=== PATIENT | female | born 1945 | race Two or more races ===

== ENCOUNTER → 2024-06-25 | Day surgery (SDC) | payer MEDICARE, MEDICAID ==
[2024-06-22 15:34] LABS: Urine Bacteria FEW /hpf (None Seen); Urine Blood Negative /uL (Negative); Urine Clarity Turbid (Clear); Urine Color Light-Yellow (Yellow); Urine Protein, UAD Negative (Negative); Urine Specific Gravity 1.018 (1.001-1.035); Urine Squamous Epithelial Cell FEW /hpf (<5); Urine Urobilinogen Normal (Negative); Urine WBC 85 /HPF (0-5); Urine pH 6.5 (5.0-9.0)
[2024-06-22 15:43] LABS: Basophils # (auto) 0.1 10 ^3/uL (0-0.2); Basophils % (auto) 0.7 % (0.0-2.0); Eosinophils # (auto) 0.2 10 ^3/uL (0-0.8); Eosinophils % (auto) 2.4 % (0.0-7.0); Hematocrit 39.7 % (36.0-46.0); Hemoglobin 13.6 g/dL (12.2-16.2); Lymphocytes # (auto) 1.6 10 ^3/uL (0.4-5.4); Lymphocytes % (auto) 20.9 % (10.0-50.0); Mean Corpuscular Hemoglobin 31.5 pg (28.0-32.0); Mean Corpuscular Hgb Conc. 34.2 g/dL (32.0-36.0); Monocytes # (auto) 0.7 10 ^3/uL (0-1.3); Monocytes % (auto) 9.2 % (0.0-12.0); Neutrophils # (auto) 5.1 10 ^3/uL (1.6-8.6); Neutrophils % (auto) 66.8 % (37.0-80.0); Nucleated Red Blood Cells % 0.1 %; Platelet Count (auto) 153 10^3/uL (140-450); Red Blood Cells 4.31 10^6/uL (4.0-5.20); Red Cell Distribution Width 13.5 % (11.8-14.3); White Blood Cell 7.7 10^3/uL (4.4-10.8)
[2024-06-22 16:04] LABS: INR 1.08 (0.9-1.15); Partial Thromboplastin Time 26.6 SEC (24.5-34.5); Prothrombin Time 11.4 sec (9.3-11.8)
[2024-06-22 16:11] LABS: Alanine Aminotransferase 16 U/L (7-40); Albumin 4.2 g/dL (3.2-4.8); Alkaline Phosphatase 118 U/L (46-116); Anion Gap 8 (5-15); Aspartate Aminotransferase 16 U/L (13-40); BUN/Creatinine Ratio 12.8 (10.0-20.0); Bilirubin, Total 0.5 mg/dL (0.2-1.0); Blood Urea Nitrogen 18 mg/dL (9-23); Calcium 9.5 mg/dL (8.7-10.4); Carbon Dioxide 28 mmol/L (20-31); Chloride 104 mmol/L (98-107); Glucose 157 mg/dL (74-106); Potassium 4.6 mmol/L (3.5-5.1); Sodium 140 mmol/L (136-145); Total Protein 7.3 g/dL (5.7-8.2)
[~2024-06-25] VITALS: Ht 162.6 cm; Wt 208.0 kg
[~2024-06-25] MED LIST: APIX5TAB PO; ATOR-507 PO; CARV25TA55 PO; CETI10TA2 PO; CHOL20007 OR; DIGO0.12 PO; DIP005TP TOP; EMPA1TAB PO; HYDR-4491 OR; INSU100I33 SC; INSU100I49 SC; ISOS1TAB29 PO; LEVO25TA6 PO; LISI2.5T47 PO; PROPOFOL 10 MG/ML 20 ML IV ONE; RANO10003 PO; TRIA0.1O EX
--- NOTE | 2024-06-25 09:39 | DVHHP2 ---
GI H&P Pre-Op Assessment Date: 06/25/24 Chief complaint: Diarrhea HPI: per clinic note Past medical history: per clinic note Past surgical history: per clinic note Family history: per clinic note Physical exam: General: NAD, AAOX3 HEENT: PERRL, no scleral icterus, normal hearing, gums without lesions or bleeding, oropharynx clear without erythema or exudate. Neck: Supple without enlargement of the thyroid, or lymphadenopathy. Chest: Normal size and shape, no tenderness, lung huitron clear to auscultation and percussion, nonlabored breathing. Heart: RRR, no murmur Abdomen: non-distended, no tenderness to palpation, +BS, no hepatosplenomegaly Extremities: no edema Neurological: CN II-XII intact, sensation intact in all extremities, 5+ strength in all extremities Skin: No rashes, No jaundice Assessment: - diarrhea Plan: - Colonoscopy - Risks (bleeding, infection, perforation, reaction to sedation medications and cardiopulmonary arrest) and benefit of the procedure were explained to patient. Patient agrees to undergo the procedure. DEION MUNIZ MD June 25, 2024 09:39
--- NOTE | 2024-06-25 09:56 | DVHOP2 ---
Operative Report DATE OF OPERATION: 06/25/24 PROCEDURE: Colonoscopy. PREOPERATIVE INDICATION: The patient is a 79 -year-old female undergoing colonoscopy for diarrhea. POSTOPERATIVE DIAGNOSES: 1. Diffuse diverticulosis 2. Random colon cold biopsy obtained to evaluate for microscopic colitis. PROCEDURE PERFORMED BY: Sudhir Eduardo M.D. SCOPE: Olympus videocolonoscope. ASA CLASS: 4 PREOPERATIVE MEDICATIONS: MAC with Dr Bishop PROCEDURE IN DETAIL: After obtaining an informed consent, the patient was placed on left lateral decubitus position. She was then sedated with the above medications. A rectal examination was performed that was normal. The colonoscope was then passed through the anus into the rectosigmoid and through the descending, transverse, and ascending colon up to the cecum with visualization of the appendiceal orifice, base of the cecum and the ileocecal valve. No mass or polyp was observed. There was diffuse diverticulosis. Random colon cold biopsies were obtained to evaluate for microscopic colitis. The colonoscope was then withdrawn. The patient tolerated the procedure well without difficulty. WITHDRAWAL TIME: 6 minutes QUALITY OF THE PREP: [place] Bowel Prep score: 5 COMPLICATIONS : None SPECIMENS: Random colon biopsies DISPOSITION: D/C to home PLAN: 1. Await for biopsy result SUDHIR EDUARDO MD June 25, 2024 09:56
--- NOTE | 2024-06-25 09:56 | DVHDS2 ---
Physician Discharge Progress N Final Diagnosis: Diverticulosis Operations or Procedures: Operations or Procedures Colonoscopy with cold biopsies Condition on Discharge: Good Disposition: Home Discharge Instructions: Diet: Regular Activity: No Restrictions, As Tolerated Medications: Resume previous home medications Follow Up Care: Discharge Statement: "Patient was advised to return to the ER or call 911 if any headaches, dizziness, shortness of breath, chest pain, abdominal pain, bleeding, fevers, or worsening of medical condition. Patient was counseled about treatment plan, medications, possible side effects, patientverbalized understanding. All questions were answered to the best of my ability. This discharge took greater then 30 minutes in planning, reviewing docume ntation, counseling the patient, and discussing with other team members." DEION MUNIZ MD June 25, 2024 09:56
[2024-06-25 10:06] VITALS: PULSE 77; RESP 12; O2SAT 99
[2024-06-25 10:26] VITALS: BP 177/69; PULSE 71; RESP 10; O2SAT 100
== END | disposition home or self-care (01) ==
LOC: GI 07:39
PROVIDERS: ATTEND Internal Medicine Gastroenterology
DX: R19.7 Diarrhea, unspecified (principal); I25.2 Old myocardial infarction; E78.5 Hyperlipidemia, unspecified; K57.30 Diverticulosis of large intestine without perforation or abscess without bleeding; E11.9 Type 2 diabetes mellitus without complications; Z86.73 Personal history of transient ischemic attack (TIA), and cerebral infarction without residual deficits; I48.91 Unspecified atrial fibrillation; Z98.41 Cataract extraction status, right eye; Z98.42 Cataract extraction status, left eye; Z90.49 Acquired absence of other specified parts of digestive tract; Z95.1 Presence of aortocoronary bypass graft; Z90.710 Acquired absence of both cervix and uterus
CPT/HCPCS: 36415; 45380; 80053; 81001; 82962; 85025; 85610; 85730; 88305; J2704; J7030